=== PATIENT | male | born 1975 | race African-American/Black ===

== ENCOUNTER 2024-09-24 18:49 | Emergency (ER) | payer OTHER ==
[~2024-09-24] VITALS: Ht 182.9 cm; Wt 68.0 kg
[2024-09-24] MEDS ORDERED: CYCLOBENZAPRINE 10 MG TABLET ONE (20:04)
[2024-09-24] MEDS ORDERED: KETOROLAC TROMETHAMINE INJ 30 MG/ML VIAL ONE (20:04)
[2024-09-24] MEDS: CYCLOBENZAPRINE 10 MG TABLET PO ONE (20:05)
[2024-09-24] MEDS: KETOROLAC TROMETHAMINE INJ 30 MG/ML VIAL IM ONE (20:05)
[2024-09-24] MEDS ORDERED: KETO10TA2 PO (20:51)
[2024-09-24 21:09] VITALS: BP 128/89; TEMP 98.2; O2SAT 100
== END 2024-09-24 21:10 | disposition home or self-care (01) ==
LOC: ER 18:56
DX: M54.50 Low back pain, unspecified (principal); G89.29 Other chronic pain; Z88.8 Allergy status to other drugs, medicaments and biological substances
CPT/HCPCS: 99283; 96372; J1885